=== PATIENT | female | born 1995 | race Caucasian/White ===

== ENCOUNTER 2021-04-03 11:41 | Outpatient (CLI) | payer OTHER, SELFPAY ==
[2021-04-03 11:51] LABS: Amphetamine Urine VISTA NEGATIVE (<1000 ng/mL); Barbiturate Urine VISTA NEGATIVE (< 200 ng/mL); Benzodiazepine Urine VISTA NEGATIVE (< 200 ng/mL); Cocaine Urine VISTA NEGATIVE (< 300 ng/mL); Ecstacy Urine VISTA NEGATIVE (< 500 ng/mL); Methadone Urine VISTA NEGATIVE (< 300 ng/mL); PCP Urine VISTA NEGATIVE (< 25 ng/mL); THC Urine VISTA NEGATIVE (< 50 ng/mL); Vista UDS pH Range 6
[2021-04-03 12:11] LABS: Absolute Lymphocyte Count 2.15 X10^3/uL (0.83-4.51); Absolute Neutrophil Count 8.8 X10^3/uL (2.0-7.7); Basophil# 0.06 X10^3/uL; Basophil% 0.5 % (0-1); Eosinophil# 0.08 X10^3/uL; Eosinophils% 0.7 % (0-5); Hematocrit 35.8 % (37-47); Hemoglobin 11.8 g/dL (12.0-15.0); Lymphocyte # 2.15 X10^3/ul (0.83-4.51); Lymphocyte % 17.7 % (19-41); Mean Corpuscular Hgb 28.3 pg (27.0-32.0); Mean Corpuscular Volume 85.9 fL (81-99); Mean Platelet Vol. 11.2 fl (6.2-12.0); Monocyte# 0.93 X10^3/uL; Monocyte% 7.6 % (0-10); NRBC Flagged by Analyzer 0 % (0-5); Neutrophil # 8.83 X10^3/uL (2.7-7.7); Neutrophil % 72.6 % (47-70); Platelet Count 260 K/mm3 (150-450); RBC Distribution Width CV 13.6 % (11.6-14.6); RBC Distribution Width SD 42.5 fl (35.1-43.9); Red Blood Count 4.17 M/mm3 (4.2-5.4); White Blood Count 12.2 K/mm3 (4.4-11.0)
[2021-04-03 13:19] LABS: HIV - WCH Non-Reactive (Nonreactive); Hepatitis B Surface Antigen Non-Reactive (Nonreactive); Hepatitis C Antibody Non-Reactive (Nonreactive); Rubella IgG Reactive (Nonreactive); Syphilis Antibodies Non-reactive
[2021-04-06 13:24] LABS: Chlamydia By Nucleic Acid AMP Indeterminate (Negative); Gonococcus By Nucleic Acid AMP Indeterminate (Negative)
[2021-04-08 14:21] LABS: HPV Reflexed? NOT INDICATED
== END 2021-04-03 23:59 | disposition home or self-care (01) ==
PROVIDERS: Referring Provider Obstetrics & Gynecology; Visit Provider Obstetrics & Gynecology
DX: Z34.80 Encounter for supervision of other normal pregnancy, unspecified trimester (principal)
CPT/HCPCS: 36415; 80307; 85025; 86703; 86762; 86780; 86803; 86850; 86900; 86901; 87086; 87088; 87340; 87491; 87591; 88175; G0145

== ENCOUNTER 2021-05-01 13:23 | Outpatient (CLI) | payer OTHER, SELFPAY ==
[2021-05-01 15:24] LABS: Chlamydia Trachomatis by PCR Negative (Negative); Neisserai gonorrhoeae by PCR Negative (Negative); Probe Check PASS; Sample Adequacy Control PASS; Specimen Processing Control PASS
== END 2021-05-01 23:59 | disposition home or self-care (01) ==
LOC: LABSPEC 13:24
PROVIDERS: Visit Provider Obstetrics & Gynecology
DX: Z34.90 Encounter for supervision of normal pregnancy, unspecified, unspecified trimester (principal)
CPT/HCPCS: 87491; 87591

== ENCOUNTER → 2021-08-01 | Outpatient (CLI) | payer OTHER, SELFPAY ==
[2021-08-01 13:39] LABS: Absolute Lymphocyte Count 1.72 X10^3/uL (0.83-4.51); Absolute Neutrophil Count 9.3 X10^3/uL (2.0-7.7); Basophil# 0.02 X10^3/uL; Basophil% 0.2 % (0-1); Eosinophil# 0.12 X10^3/uL; Hematocrit 35.5 % (37-47); Hemoglobin 11.9 g/dL (12.0-15.0); Lymphocyte # 1.72 X10^3/ul (0.83-4.51); Lymphocyte % 14.1 % (19-41); Mean Corp Hgb Conc 33.5 g/dL (32-36); Mean Corpuscular Hgb 30.1 pg (27.0-32.0); Mean Corpuscular Volume 89.6 fL (81-99); Mean Platelet Vol. 11.1 fl (6.2-12.0); Monocyte# 0.96 X10^3/uL; Monocyte% 7.9 % (0-10); NRBC Flagged by Analyzer 0 % (0-5); Neutrophil % 76.2 % (47-70); Platelet Count 241 K/mm3 (150-450); RBC Distribution Width CV 13.1 % (11.6-14.6); Red Blood Count 3.96 M/mm3 (4.2-5.4); White Blood Count 12.2 K/mm3 (4.4-11.0)
[2021-08-01 14:11] LABS: Glucose Challenge Gest 1H 50g 92 mg/dL (70-140)
== END | disposition home or self-care (01) ==
PROVIDERS: Referring Provider Obstetrics & Gynecology; Visit Provider Obstetrics & Gynecology
DX: Z34.90 Encounter for supervision of normal pregnancy, unspecified, unspecified trimester (principal)
CPT/HCPCS: 36415; 82950; 85025

== ENCOUNTER → 2021-08-29 | Outpatient (CLI) | payer MEDICAID, SELFPAY ==
[2021-08-29 19:54] LABS: Chlamydia Trachomatis by PCR Negative (Negative); Neisserai gonorrhoeae by PCR Negative (Negative); Probe Check PASS; Sample Adequacy Control PASS; Specimen Processing Control PASS
[2021-09-02 10:08] LABS: QNTFERON TB Mitogen Value > 10.00 IU/mL (.); QNTFERON TB Nil Value 0.01 IU/mL (.); QNTFERON TB1+ Ag Value 0.01 IU/mL (.); QNTFERON TB2+ Ag Value 0.01 IU/mL (.)
[2021-09-02 13:30] LABS: QNTIFERON TB Positive Criteria Negative (Negative)
== END | disposition home or self-care (01) ==
PROVIDERS: Referring Provider Obstetrics & Gynecology; Visit Provider Obstetrics & Gynecology
DX: Z11.3 Encounter for screening for infections with a predominantly sexual mode of transmission (principal)
CPT/HCPCS: 36415; 86480; 87491; 87591

== ENCOUNTER → 2021-10-15 | Outpatient (CLI) | payer MEDICAID, SELFPAY | END | disposition home or self-care (01) | LOC: LABSPEC 15:41 | PROVIDERS: Visit Provider Obstetrics & Gynecology | DX: Z34.90 Encounter for supervision of normal pregnancy, unspecified, unspecified trimester (principal) | CPT/HCPCS: 87081 ==

== ENCOUNTER 2021-10-24 10:34 | Inpatient (IN) | payer SELFPAY ==
[2021-10-24] VITALS (17 sets, daily range): BP systolic 110–134; BP diastolic 62–78; PULSE 55–74; RESP 18; TEMP 36.2–36.6; O2SAT 99; BMI 27.7
[2021-10-24 10:32] LABS: ROM Internal Control Test YES-OK TO RESULT pt. (Internal QC)
[2021-10-24 10:33] LABS: ROM Patient Test POSITIVE (Negative)
[2021-10-24] MEDS: Lactated Ringers 1,000 ML 50 ML IV (11:15)
[2021-10-24 11:26] LABS: Absolute Lymphocyte Count 1.45 X10^3/uL (0.83-4.51); Absolute Neutrophil Count 6.7 X10^3/uL (2.0-7.7); Basophil# 0.02 X10^3/uL; Basophil% 0.2 % (0-1); Eosinophil# 0.05 X10^3/uL; Eosinophils% 0.6 % (0-5); Hematocrit 37.9 % (37-47); Hemoglobin 13.1 g/dL (12.0-15.0); Lymphocyte # 1.45 X10^3/ul (0.83-4.51); Lymphocyte % 16.1 % (19-41); Mean Corp Hgb Conc 34.6 g/dL (32-36); Mean Corpuscular Hgb 29.8 pg (27.0-32.0); Mean Corpuscular Volume 86.1 fL (81-99); Mean Platelet Vol. 12.1 fl (6.2-12.0); Monocyte# 0.75 X10^3/uL; Monocyte% 8.3 % (0-10); NRBC Flagged by Analyzer 0 % (0-5); Neutrophil # 6.65 X10^3/uL (2.7-7.7); Platelet Count 183 K/mm3 (150-450); RBC Distribution Width CV 12.8 % (11.6-14.6); RBC Distribution Width SD 39.6 fl (35.1-43.9)
[2021-10-24] MEDS: Oxytocin 30 units/NS 500 ml 30 UNITS/500 ML IV.SOLN 334 UNITS IV (14:47)
--- NOTE | 2021-10-24 22:01 | HP.PCM.OB_ITS ---
HPI - General General Date of Admission: 10/24/21 HPI Narrative ROGER OMALLEY, is a 25 F who presents IAL with SROM clear fluid regular ctx no vb admits good fm Maternal Data Information SAM Calculator Estimated Delivery Date Method Current WG Current Estimate 11/09/21 LMP (Certain) 37w 5d PFSH PFSH Home Medications prenat.vits,raúl,iay-lqop-uybea 1 tab PO DAILY 03/18/21 [History Last Taken 10/23/21 08:00] Allergy/AdvReac Type Severity Reaction Status Date / Time No Known Allergies Allergy Verified 10/24/21 10:20 Family History Mother Breast cancer, Onset Age: 52 2019 Surgical History S/P lateral meniscus repair of right knee S/P wisdom tooth extraction Social History adopted: No household members: spouse and other details: stepdaughter current occupational status: employed 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 labor support person: kath labor intervention preferences: pain management options preferred: minimal intervention, open to epidural cut cord/dad catch: yes : [] PP control planned: [] discussed possible routes of delivery and associated risks: [] special requests: [] Plans Covid status: counseled regarding risk of covid in vs vaccination and declined vaccination Flu vaccine: declined Tdap vaccine: given Rhogam: na LARC form sigd: declined movement and labor precautions reviewed. Problem list reviewed and updated with the most current plan of care details and appropriate orders placed. Relevant counseling for the gestational age provided. Continue routine care and follow up unless otherwise noted in visit notes/problem list details OB Flowsheet Initial Weight: 155 lb Date -?-?-?-?-?-?-?-?-?-?-?-?- EGA Weight BP Urine Prot -?-?-?-?-?-?-?-?-?-?-?-?- Glucose FHR FuHt Pres Dilation -?-?-?-?-?-?-?-?-?-?-?-?- Effaced St Visit Note 04/03/21 -?-?-?-?-?-?-?-?-?-?-?-?- 8w 4d 155 lb 4 oz (+4 oz) 130/70 -?-?-?-?-?-?-?-?-?-?-?-?- 170 -?-?-?-?-?-?-?-?-?-?-?-?- JV- no vaginal b leeding or cramping CRL consistent with LMP. 05/01/21 -?-?-?-?-?-?-?-?-?-?-?-?- 12w 4d 152 lb 6 oz (-2 lb 10 oz) 118/68 Negative -?-?-?-?-?-?-?-?-?-?-?-?- Negative 155 -?-?-?-?-?-?-?-?-?-?-?-?- SM- no vb crampi ng 06/05/21 -?-?-?-?-?-?-?-?-?-?-?-?- 17w 4d 153 lb 2 oz (-1 lb 14 oz) 112/80 Negative -?-?-?-?-?-?-?-?-?-?-?-?- Negative 147 -?-?-?-?-?-?-?-?-?-?-?-?- JV- no lof, vagi nal bleeding, or dec fm. needs anatomy scan ordered 07/03/21 -?-?-?-?-?-?-?-?-?-?-?-?- 21w 4d 157 lb 6 oz (+2 lb 6 oz) 120/60 Negative -?-?-?-?-?-?-?-?-?-?-?-?- Negative 144 -?-?-?-?--?-?-?-?-?-?-?-?- JV- normal anato my. pt has atopic dermatitis 08/01/21 -?-?-?-?-?-?-?-?-?-?-?-?- 25w 5d 164 lb 2 oz (+9 lb 2 oz) 128/64 Negative -?-?-?-?-?-?-?-?-?-?-?-?- Negative 140 26 -?-?-?-?-?-?-?-?-?-?-?-?- SM- no vb lof go od fm no regualr ctx 08/29/21 -?-?-?-?-?-?-?-?-?-?--?-?- 29w 5d 168 lb 4 oz (+13 lb 4 oz) 110/60 Trace -?-?-?-?-?-?-?-?-?-?-?-?- Negative 140 30 -?-?-?-?-?-?-?-?-?-?-?-?- SM- no vb lof go od fm no regualr ctx 09/10/21 -?-?-?-?-?-?-?-?-?-?-?-?- 31w 3d 168 lb (+13 lb) 118/66 Negative -?-?-?-?-?-?-?-?-?-?-?-?- Negative 145 31 -?-?-?-?-?-?-?-?-?-?-?-?- JV- no lof, vagi nal bleeding, or dec fm. no complaints today. PTL precautions discussed. 09/23/21 -?-?-?-?-?-?-?-?-?-?-?-?- 33w 2d 171 lb (+16 lb) 122/60 Negative -?-?-?-?-?-?-?-?-?-?-?-?- Negative 140 32 -?-?-?-?-?-?-?-?-?-?-?--?- SM- discussed la bor techniques, no vb lof good fm no regular ctx 10/06/21 -?-?-?-?-?-?-?-?-?-?-?-?- 35w 1d 172 lb (+17 lb) 110/66 Negative -?-?-?-?-?-?-?-?-?-?-?-?- Negative 130 34 -?-?-?-?-?-?-?-?-?-?-?-?- SM- no vb lof go od fm no regular ctx 10/15/21 -?-?-?-?-?-?--?-?-?-?-?-?- 36w 3d 173 lb 6 oz (+18 lb 6 oz) 102/62 Negative -?-?-?-?-?-?-?-?-?-?-?-?- Negative 134 36 Cephalic 3 .5 -?-?--?-?-?-?-?-?-?-?-?-?- 70 -2 JV- gbs co llected. labor precautions discussed. 10/22/21 -?-?-?-?-?-?-?-?-?-?-?-?- 37w 3d 172 lb 8 oz (+17 lb 8 oz) 126/69 Trace -?-?-?-?-?-?-?-?-?-?-?-?- Negative 129 37 Cephalic 4 -?-?-?-?-?-?-?-?-?-?-?-?- 80 -2 JV- labor precautions discussed, no lof, vaginal bleeding, or dec fm. GBs neg 10/24/21 -?-?-?-?-?-?-?-?-?-?-?-?- 37w 5d 171 lb 15.369 oz (+16 lb 15.369 oz) 115/73 134/72 121/62 119/71 114/62 110/67 124/71 114/73 113/73 118/78 117/73 118/76 125/78 122/76 -?-?-?-?-?-?-?-?-?-?-?-?- -?-?-?-?-?-?-?-?-?-?-?-?- NST FHR Rate Baby A Baseline: 140 Variability:: Moderate Accelerations:: 15 x 15 Decelerations:: None NST Reactive:: Yes FHR Category:: Category I Uterine Activity:: q3-5 ROS Constitutional Constitutional: Reports systems reviewed and no addt'l complaints, except as documented ENT HEENT: Reports systems reviewed and no addt'l complaints, except as documented Cardiovascular Cardiovascular: Reports systems reviewed and no addt'l complaints, except as documented Respiratory/Chest Respiratory/Chest: Reports systems reviewed and no addt'l complaints, except as documented Gastrointestinal Gastrointestinal: Reports systems reviewed and no addt'l complaints, except as documented and nausea; Denies abdominal pain Genitourinary Genitourinary: Reports systems reviewed and no addt'l complaints, except as documented, contractions Details: present and frequency (regular ) and movement Details: present Musculoskeletal Musculoskeletal: Reports systems reviewed and no addt'l complaints, except as documented Integumentary Integumentary: Reports as per HPI Neurologic Neurologic: Reports systems reviewed and no addt'l complaints, except as documented Endocrine Endocrinology: Reports systems reviewed and no addt'l complaints, except as documented Vital Signs Vital Signs Vital Signs: 10/24/21 10:03 10/24/21 10:03 10/24/21 10:03 Temperature Temperature Source Pulse Rate 74 Respiratory Rate Blood Pressure 115/73 Blood Pressure [BP] Blood Pressure Mean [BP] BP Systolic 115 BP Diastolic 73 Blood Pressure Source [BP] Blood Pressure Position [BP] Blood Pressure Location [BP] Pulse Ox 99 Oxygen Delivery Method 10/24/21 10:03 10/24/21 10:02 10/24/21 10:02 Temperature 97.1 F L Temperature Source Temporal Pulse Rate 68 Respiratory Rate Blood Pressure Blood Pressure [BP] Blood Pressure Mean [BP] BP Systolic BP Diastolic Blood Pressure Source [BP] Blood Pressure Position [BP] Blood Pressure Location [BP] Pulse Ox Oxygen Delivery Method 10/24/21 12:21 10/24/21 12:21 10/24/21 12:20 Temperature Temperature Source Temporal Pulse Rate 66 Respiratory Rate Blood Pressure 134/72 H Blood Pressure [BP] Blood Pressure Mean [BP] BP Systolic 134 BP Diastolic 72 Blood Pressure Source [BP] Blood Pressure Position [BP] Blood Pressure Location [BP] Pulse Ox Oxygen Delivery Method 10/24/21 12:20 10/24/21 12:20 10/24/21 14:06 Temperature 97.3 F L Temperature Source Pulse Rate Respiratory Rate Blood Pressure 121/62 H Blood Pressure [BP] Blood Pressure Mean [BP] BP Systolic 121 BP Diastolic 62 Blood Pressure Source [BP] Blood Pressure Position [BP] Blood Pressure Location [BP] Pulse Ox 99 Oxygen Delivery Method 10/24/21 14:06 10/24/21 15:01 10/24/21 15:01 Temperature Temperature Source Pulse Rate 60 63 Respiratory Rate Blood Pressure 119/71 Blood Pressure [BP] Blood Pressure Mean [BP] BP Systolic 119 BP Diastolic 71 Blood Pressure Source [BP] Blood Pressure Position [BP] Blood Pressure Location [BP] Pulse Ox Oxygen Delivery Method 10/24/21 15:16 10/24/21 15:16 10/24/21 15:31 Temperature Temperature Source Pulse Rate 63 Respiratory Rate Blood Pressure 114/62 110/67 Blood Pressure [BP] Blood Pressure Mean [BP] BP Systolic 114 110 BP Diastolic 62 67 Blood Pressure Source [BP] Blood Pressure Position [BP] Blood Pressure Location [BP] Pulse Ox Oxygen Delivery Method 10/24/21 15:31 10/24/21 15:46 10/24/21 15:46 Temperature Temperature Source Pulse Rate 69 63 Respiratory Rate Blood Pressure 124/71 H Blood Pressure [BP] Blood Pressure Mean [BP] BP Systolic 124 BP Diastolic 71 Blood Pressure Source [BP] Blood Pressure Position [BP] Blood Pressure Location [BP] Pulse Ox Oxygen Delivery Method 10/24/21 16:02 10/24/21 16:02 10/24/21 16:16 Temperature Temperature Source Pulse Rate 57 L Respiratory Rate Blood Pressure 114/73 113/73 Blood Pressure [BP] Blood Pressure Mean [BP] BP Systolic 114 113 BP Diastolic 73 73 Blood Pressure Source [BP] Blood Pressure Position [BP] Blood Pressure Location [BP] Pulse Ox Oxygen Delivery Method 10/24/21 16:16 10/24/21 16:31 10/24/21 16:31 Temperature Temperature Source Pulse Rate 56 L 55 L Respiratory Rate Blood Pressure 118/78 Blood Pressure [BP] Blood Pressure Mean [BP] BP Systolic 118 BP Diastolic 78 Blood Pressure Source [BP] Blood Pressure Position [BP] Blood Pressure Location [BP] Pulse Ox Oxygen Delivery Method 10/24/21 16:46 10/24/21 16:46 10/24/21 17:01 Temperature Temperature Source Pulse Rate 61 Respiratory Rate Blood Pressure 117/73 118/76 Blood Pressure [BP] Blood Pressure Mean [BP] BP Systolic 117 118 BP Diastolic 73 76 Blood Pressure Source [BP] Blood Pressure Position [BP] Blood Pressure Location [BP] Pulse Ox Oxygen Delivery Method 10/24/21 17:01 10/24/21 17:13 10/24/21 17:13 Temperature Temperature Source Pulse Rate 60 58 L Respiratory Rate Blood Pressure 125/78 H Blood Pressure [BP] Blood Pressure Mean [BP] BP Systolic 125 BP Diastolic 78 Blood Pressure Source [BP] Blood Pressure Position [BP] Blood Pressure Location [BP] Pulse Ox Oxygen Delivery Method 10/24/21 20:01 10/24/21 20:01 10/24/21 20:01 Temperature 97.9 F Temperature Source Temporal Pulse Rate 73 73 Respiratory Rate 18 Blood Pressure 122/76 H Blood Pressure [BP] 122/76 H Blood Pressure Mean [BP] 91 BP Systolic 122 BP Diastolic 76 Blood Pressure Source [BP] Monitor Blood Pressure Position [BP] Semi-Fowlers Blood Pressure Location [BP] Left Arm Pulse Ox Oxygen Delivery Method Room Air Weight Weight: 171 lb 15.369 oz Body Mass Index (BMI) 27.7 Physical Exam Const alert, oriented x3 and healthy appearing Constitutional Narrative: uncomfortable with contractions HEENT normocephalic and moist oral mucous membranes Head and Scalp: atraumatic Neck full ROM, no lymphadenopathy, supple and thyroid normal General: trachea midline Thyroid: thyroid normal Lymph Lymphatic: no lymphadenopathy noted Chest inspection of chest normal Resp normal respiratory effort Cardio regular rate GI normal to inspection, nondistended, normoactive bowel sounds, soft to palpation and non-tender Inspection: gravid external exam normal Bimanual Exam - Vag & Uterus: uterus non-tender Manual OB Exam: estimated gestational size appropriate, presentation cephalic, dilated, effaced and station Extremity normal to inspection General Extremity: Negative for edema Skin no rashes or lesions noted Neuro deep tendon reflexes 2+ bilaterally Motor Exam: strength 5/5 throughout and clonus absent Psych mental status grossly normal Labs Labs Labs: Blood Type A POSITIVE Antibody Screen NEGATIVE Hct 37.9 % (37-47) Hgb 13.1 g/dL (12.0-15.0) Syphilis Total Ab Non-reactive Rubella IgG Antibody Reactive (Nonreactive) Hep Bs Antigen Non-Reactive (Nonreactive) Chlamydia DNA (MARKO) Indeterminate (Negative) Neisseria gonorrhoeae DNA (MARKO) Indeterminate (Negati ve) HIV 1&2 Antibody Non-Reactive (Nonreactive) Glucose 1 Hr 50 gm 92 mg/dL (70-140) Assessment & Plan (1) Supervision of normal : COMMENT: PRR SAM 11/09/21 surprise spouse Kath Albright) (2) Family history of cystic fibrosis: COMMENT: 2 paternal cousins but feels due to their maternal side (3) : QUALIFIERS: Weeks of gestation: 37 weeks Qualified Code(s): Z3A.37 - 37 weeks gestation of COMMENT: declined ntd genetic and carrier screen nl anatomy US (4) SROM (spontaneous rupture of membranes): COMMENT: active labor
--- NOTE | 2021-10-24 22:03 | OP.PCM_ITS ---
Assessment & Plan (1) SROM (spontaneous rupture of membranes): COMMENT: active labor (2) Supervision of normal : COMMENT: PRR SAM 11/09/21 surprise spouse Atilio Albrgiht) (3) Family history of cystic fibrosis: COMMENT: 2 paternal cousins but feels due to their maternal side (4) : QUALIFIERS: Weeks of gestation: 37 weeks Qualified Code(s): Z3A.37 - 37 weeks gestation of COMMENT: declined ntd genetic and carrier screen nl anatomy US Maternal Data Information SAM Calculator Estimated Delivery Date Method Current WG Current Estimate 11/09/21 LMP (Certain) 37w 5d Vaginal Delivery Operative Information Date of Procedure: 10/24/21 Pre-Operative Diagnosis: IAL Post-Operative Diagnosis: same Surgery / Procedure Performed: Spontaneous Vaginal Delivery Type of Anesthesia: Local with 1% Lidocaine Special Medications: none Estimated Blood Loss: 200 Fluids Replaced: crystalloid Findings Description of Procedure: Patient began pushing and delivered the head in the KEZIA presentation. The head was delivered atraumatically and a loose nuchal cord ?1 was identified and the delivered through without complication. The anterior and posterior shoulders delivered without complication followed by the rest of the and the infant was placed on the maternal abdomen. Delayed cord clamping was employed for approximately 60 seconds. Cord was clamped and cut and gentle traction was applied to the cord and the placenta delivered spontaneously immediately following it was noted to be intact with three-vessel cord. The perineum and vagina were inspected and noted to have a left vaginal first degree laceration repaired in jeana usual fashion with 3-0 rapide. EBL was 200. Patient and tolerated delivery well. Presentation: KEZIA Amniotic Membrane Rupture Type: Spontaneous Amniotic Fluid Description: Clear Placental Delivery Description: Spontaneous Placenta Disposition: [facility] Cord Vessel Description: 3 Vessels Cord Entanglement: Around neck x 1, loose A Gender: Male Delayed Cord Clamping: Yes Post Vaginal Delivery Medications Given After Delivery: IV Pitocin Episiotomy Description: None Laceration: Vaginal Extension/lac and 1st degree Complication Complications: None Procedures Urinary/Genital [id number]: [id number] Vaginal Delivery [facility]
--- NOTE | 2021-10-24 22:05 | DCINST_ITS ---
Discharge Instructions Diet Discharge Diet: No restrictions Activity Discharge Activity: Return to Normal Activity, May Drive, May Shower and May Take a Tub Bath (in 4 weeks) May resume sexual activity in: 6-8 weeks (after seen by OB provider) Weight Bearing Status: Full weight bearing Lifting Restrictions: none Dressing / Incision Call your doctor if you observe: Fever of 101 or Higher, Inability to urinate, Using more than 1 pad per hour (for more than 2 hours in a row or more), Shortness of breath, Dizziness, Chest pain and - (headache not controlled with tylenol, change in vision) Follow Up Care When: in 6 weeks for visit, call the office to make the appointment. If you had elevated blood pressures call the office to be seen within 1 week. Test Results: Test results from this visit will be discussed in further detail at your follow- up appointment, if applicable. Discharge Plan Admission Admit Date/Time: 10/24/21 10:34 Attending Provider: Cherelle White Primary Care Provider: Care Physician,Isaura Primary Discharge Orders/Prescriptions Prescriptions: No Action prenat.vits,raúl,[id number] Tablet 1 tab PO DAILY Referrals / Follow Up: Care Physician,No Primary [Primary Care Provider] - Disposition Disposition (needs filled in before D/C Order can be placed): Home, Self Care
[2021-10-25 06:00] VITALS: BP 112/65; PULSE 76; RESP 16; TEMP 36.6
[2021-10-25 08:32] VITALS: BP 98/68; PULSE 72; RESP 18; TEMP 36.4; O2SAT 97
--- NOTE | 2021-10-25 09:16 | PN.OBGYN_ITS ---
Subjective Subjective Patient doing well without complaints. Tolerating PO. Ambulating and voiding without difficulty. feeding well. Denies chest pain, shortness of breath, calf pain/swelling, fevers, chills, lightheadedness. Objective Data Objective Data Vital Signs: Vital Signs Temp Pulse Resp BP Pulse Ox O2 Del Method 97.5 F L 72 18 98/68 97 Room Air 10/25/21 08:32 10/25/21 08:32 10/25/21 08:32 10/25/21 08:32 10/25/21 08:32 10/25/21 08:32 Oxygen Delivery Method Room Air Weight: 171 lb 15.369 oz Body Mass Index (BMI) 27.7 Intake & Output: Intake and Output for Last 24 Hours 10/23/21 10/24/21 10/25/21 23:59 23:59 23:59 Intake Total 676.67 / 676.67 Output Total 1800 / 1800 Balance -1123.33 / -1123.33 Lab / Micro Data Result Diagrams: 10/24/21 11:15 Labs: Laboratory Results - last 24 hr 10/24/21 10:15: Vag Amniotic Fld Detect POSITIVE H 10/24/21 11:15: WBC 9.0, RBC 4.40, Hgb 13.1, Hct 37.9, MCV 86.1, MCH 29.8, MCHC 34.6, RDW Std Deviation 39.6, RDW Coeff of Derick 12.8, Plt Count 183, MPV 12.1 H, Immature Gran % (Auto) 0.800, Neut % (Auto) 74.0 H, Lymph % (Auto) 16.1 L, [facility] % (Auto) 8.3, Eos % (Auto) 0.6, Baso % (Auto) 0.2, Absolute Neuts (auto) 6.7, Absolute Lymphs (auto) 1.45, Nucleated RBC % 0 10/24/21 11:15: Blood Type A POSITIVE, Antibody Screen NEGATIVE ROS Constitutional Constitutional: Reports systems reviewed and no addt'l complaints, except as documented Cardiovascular Cardiovascular: Reports systems reviewed and no addt'l complaints, except as documented Respiratory/Chest Respiratory/Chest: Reports systems reviewed and no addt'l complaints, except as documented Gastrointestinal Gastrointestinal: Reports systems reviewed and no addt'l complaints, except as documented Physical Exam Const alert, oriented x3 and no apparent distress HEENT Head and Scalp: atraumatic Resp normal respiratory effort GI soft to palpation and non-tender Bimanual Exam - Vag & Uterus: uterus non-tender Uterus Palpation: uterus fundus firm (below Umbilicus) Assessment & Plan (1) Vaginal delivery: COMMENT: 37 SROM SM phil casiano
[2021-10-25 12:55] VITALS: BP 95/68; PULSE 61; RESP 16; TEMP 36.4; O2SAT 99
[2021-10-25 16:53] VITALS: BP 115/63; PULSE 60; RESP 16; TEMP 36.1; O2SAT 100
[2021-10-25 20:21] VITALS: BP 128/76; PULSE 70; RESP 16; TEMP 36.6; O2SAT 100
[2021-10-26 02:09] VITALS: BP 105/59; PULSE 64; RESP 16; TEMP 36.3; O2SAT 98
[2021-10-26 04:28] VITALS: BP 109/63; PULSE 64; RESP 16; TEMP 36.4
--- NOTE | 2021-10-26 06:25 | PCM.PN.OB ---
Subjective Subjective Patient doing well without complaints. Tolerating PO. Ambulating and voiding without difficulty. feeding well. Denies chest pain, shortness of breath, calf pain/swelling, fevers, chills, lightheadedness. Objective Data Objective Data Vital Signs: Vital Signs Temp Pulse Resp BP Pulse Ox O2 Del Method 97.5 F L 64 16 109/63 98 Room Air 10/26/21 04:28 10/26/21 04:28 10/26/21 04:28 10/26/21 04:28 10/26/21 02:10/26/21 04:28 Oxygen Delivery Method Room Air Weight: 171 lb 15.369 oz Body Mass Index (BMI) 27.7 Intake & Output: Intake and Output for Last 24 Hours 10/24/21 10/25/21 10/26/21 23:59 23:59 23:59 Intake Total 676.67 / 676.67 Output Total 1800 / 1800 Balance -1123.33 / -1123.33 Lab / Micro Data Result Diagrams: 10/24/21 11:15 ROS Constitutional Constitutional: Reports systems reviewed and no addt'l complaints, except as documented Cardiovascular Cardiovascular: Reports systems reviewed and no addt'l complaints, except as documented Respiratory/Chest Respiratory/Chest: Reports systems reviewed and no addt'l complaints, except as documented Gastrointestinal Gastrointestinal: Reports systems reviewed and no addt'l complaints, except as documented Physical Exam Const alert, oriented x3 and no apparent distress HEENT Head and Scalp: atraumatic Resp normal respiratory effort GI soft to palpation and non-tender Bimanual Exam - Vag & Uterus: uterus non-tender Uterus Palpation: uterus fundus firm (below Umbilicus) Assessment & Plan (1) Vaginal delivery: COMMENT: 37 SROM SM phil casiano
[2021-10-26 07:50] VITALS: BP 117/72; PULSE 54; RESP 16; TEMP 36.7; O2SAT 98
[2021-10-26 13:22] VITALS: BP 114/69; PULSE 60; RESP 16; O2SAT 99
== END 2021-10-26 13:45 | disposition home or self-care (01) | DRG 807 ==
LOC: WPOUT 10:34 → WP 10:34
PROVIDERS: Admitting Provider Obstetrics & Gynecology; Referring Provider Obstetrics & Gynecology; Visit Provider Obstetrics & Gynecology
DX: O70.0 First degree perineal laceration during delivery (principal); Z37.0 Single live birth; O69.81X0 Labor and delivery complicated by cord around neck, without compression, not applicable or unspecified; Z3A.37 37 weeks gestation of pregnancy; Z83.49 Family history of other endocrine, nutritional and metabolic diseases
CPT/HCPCS: 59025; 59050; 84112; 85025; 86850; 86900; 86901; 99218; J7120; G0378

== ENCOUNTER 2022-12-22 21:09 | Emergency (ER) | payer BC, SELFPAY ==
[2022-12-22 21:10] VITALS: BP 133/64; PULSE 69; RESP 16; TEMP 36.6; O2SAT 99; BMI 24.8
--- NOTE | 2022-12-22 21:18 | US_ITS ---
INDICATION: vaginal bleeding with clots EXAMINATION: Ultrasound US OB Transvaginal TECHNIQUE: Transvaginal (for optimal evaluation of the adnexa) pelvic ultrasound was performed. Grayscale, spectral waveform, and color flow Doppler evaluation of the adnexa. COMPARISON: No relevant prior comparison study available LMP: [10/29/2022 Beta-hCG: Unknown FINDINGS: UTERUS: Mobile uterus measuring 7.6 x 6.2 x 4.5 cm. This is positioned in both a retroverted and anteverted position throughout the examination. There is no intrauterine gestational sac identified. Endometrium is fairly homogenous measuring 1.4 cm. No uterine mass. The cervix is closed. RIGHT OVARY: 3.7 x 2.4 x 2.2 cm. Normal arterial and venous spectral waveforms. Corpus luteum noted. LEFT OVARY: 3 x 1.4 x 1.2 cm. Normal arterial and venous spectral waveforms. FREE FLUID: Mild to moderate volume of complex free fluid in the pelvis. US/Transvaginal w/Preg US IMPRESSION: No intrauterine identified. No evidence of ectopic . Appearance is most concerning for spontaneous . Continued follow-up recommended. Electronically Signed: Cristi Slaughter MD at 22:37 EST ,
[2022-12-22 21:37] LABS: Absolute Lymphocyte Count 3.35 X10^3/uL (0.83-4.51); Absolute Neutrophil Count 6.1 X10^3/uL (2.0-7.7); Basophil% 0.9 % (0-1); Eosinophil# 0.27 X10^3/uL; Eosinophils% 2.5 % (0-5); Hematocrit 40.3 % (37-47); Hemoglobin 13.1 g/dL (12.0-15.0); Lymphocyte # 3.35 X10^3/ul (0.83-4.51); Lymphocyte % 31.5 % (19-41); Mean Corp Hgb Conc 32.5 g/dL (32-36); Mean Corpuscular Hgb 28.4 pg (27.0-32.0); Mean Corpuscular Volume 87.4 fL (81-99); Monocyte# 0.77 X10^3/uL; Monocyte% 7.3 % (0-10); NRBC Flagged by Analyzer 0 % (0-5); Neutrophil # 6.11 X10^3/uL (2.7-7.7); Neutrophil % 57.6 % (47-70); Platelet Count 284 K/mm3 (150-450); RBC Distribution Width CV 13.6 % (11.6-14.6); RBC Distribution Width SD 43.7 fl (35.1-43.9); Red Blood Count 4.61 M/mm3 (4.2-5.4); White Blood Count 10.6 K/mm3 (4.4-11.0)
[2022-12-22 21:46] LABS: Anion Gap 4 (5-15); BUN 9 mg/dL (7-18); BUN/Creat Ratio 11.1 RATIO (10-20); Calcium,Total 9.6 mg/dL (8.5-10.1); Chloride 105 mmol/L (98-107); Creatinine, Serum 0.81 mg/dL (0.55-1.02); EST Glomerular Filtration Rate 90 mL/min (>60); Est Glom Filt Rate - Afr Amer 109 mL/min (>60); Estimated Creatinine Clearance 97.66 ml/min; Glucose 95 mg/dL (74-106); Potassium 3.9 mmol/L (3.5-5.1); Sodium Level 137 mmol/L (136-145)
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
[2022-12-22 22:04] LABS: Bacteria 0 SEEN /hpf (None Seen); Glucose, Dipstick Normal (Normal); Ketone-Dipstick Negative (Negative); Leukocyte Esterase-Dipstick 25 /ul (Negative); Mucous, Urine 0 SEEN /hpf (<or=2+); Nitrite-Dipstick Negative (Negative); Occult Blood-Urine 250 /ul (Negative); Protein-Dipstick 100 mg/dl (Negative); Specific Gravity, Urine 1.015 (1.002-1.030); Urine Bilirubin Dipstick Negative (Negative); Urine Clarity Sl. Cloudy (Clear); Urine Urobilinogen Normal (Normal); White Blood Cells 0 SEEN /hpf (0-5)
[2022-12-22 22:09] LABS: Color, Urine SEE COMMENT BELOW (Yellow)
[2022-12-22 22:10] LABS: Red Blood Cells-Urine > 100 SEEN /hpf (0-5); Squamous Epithelial Cells - UA 0-5 SEEN /hpf (5-10)
[2022-12-22 22:33] LABS: hCG Titer Quant., Serum 4180 mIU/mL (1-3)
[2022-12-22 22:59] VITALS: RESP 16
== END 2022-12-22 23:00 | disposition home or self-care (01) ==
PROVIDERS: Emergency Provider Student in an Organized Health Care Education/Training Program; PCP Family Medicine; Visit Provider Student in an Organized Health Care Education/Training Program
DX: O03.9 Complete or unspecified spontaneous abortion without complication (principal)
CPT/HCPCS: 76817; 80048; 81001; 84702; 85025; 99282; A4216

== ENCOUNTER → 2022-12-24 | Outpatient (CLI) | payer BC, SELFPAY ==
[2022-12-24 12:51] LABS: hCG Titer Quant., Serum 1336 mIU/mL (1-3)
== END | disposition home or self-care (01) ==
LOC: LAB 10:57
PROVIDERS: Obstetrics & Gynecology; PCP Family Medicine; Referring Provider Advanced Practice Midwife; Visit Provider Advanced Practice Midwife
DX: O03.9 Complete or unspecified spontaneous abortion without complication (principal)
CPT/HCPCS: 36415; 84702

== ENCOUNTER → 2023-01-08 | Outpatient (CLI) | payer BC, SELFPAY ==
[2023-01-08 14:17] LABS: hCG Titer Quant., Serum 6 mIU/mL (1-3)
== END | disposition home or self-care (01) ==
LOC: LAB 12:27
PROVIDERS: Obstetrics & Gynecology; PCP Family Medicine; Referring Provider Advanced Practice Midwife; Visit Provider Advanced Practice Midwife
DX: O03.9 Complete or unspecified spontaneous abortion without complication (principal)
CPT/HCPCS: 36415; 84702

== ENCOUNTER → 2023-03-18 | Outpatient (CLI) | payer BC, SELFPAY ==
[2023-03-22 22:07] LABS: Chlamydia By Nucleic Acid AMP Negative (Negative); Gonococcus By Nucleic Acid AMP Negative (Negative)
== END | disposition home or self-care (01) ==
LOC: LABSPEC 13:07
PROVIDERS: PCP Family Medicine; Referring Provider Obstetrics & Gynecology; Visit Provider Obstetrics & Gynecology
DX: O03.9 Complete or unspecified spontaneous abortion without complication (principal)
CPT/HCPCS: 87086; 87088; 87491; 87591

== ENCOUNTER → 2023-04-19 | Outpatient (CLI) | payer BC, SELFPAY ==
[2023-04-19 16:21] LABS: Absolute Lymphocyte Count 1.43 X10^3/uL (0.83-4.51); Absolute Neutrophil Count 7.7 X10^3/uL (2.0-7.7); Basophil# 0.02 X10^3/uL; Basophil% 0.2 % (0-1); Eosinophil# 0.07 X10^3/uL; Eosinophils% 0.7 % (0-5); Hematocrit 38.1 % (37-47); Hemoglobin 12.7 g/dL (12.0-15.0); Lymphocyte # 1.43 X10^3/ul (0.83-4.51); Lymphocyte % 14.5 % (19-41); Mean Corp Hgb Conc 33.3 g/dL (32-36); Mean Corpuscular Hgb 28.5 pg (27.0-32.0); Mean Corpuscular Volume 85.4 fL (81-99); Mean Platelet Vol. 10.9 fl (6.2-12.0); Monocyte# 0.59 X10^3/uL; NRBC Flagged by Analyzer 0 % (0-5); Neutrophil # 7.66 X10^3/uL (2.7-7.7); Platelet Count 323 K/mm3 (150-450); RBC Distribution Width CV 13.1 % (11.6-14.6); RBC Distribution Width SD 40.5 fl (35.1-43.9); Red Blood Count 4.46 M/mm3 (4.2-5.4); White Blood Count 9.8 K/mm3 (4.4-11.0)
[2023-04-19 17:45] LABS: HIV - WCH Non-Reactive (Nonreactive); Hepatitis B Surface Antigen Non-Reactive (Nonreactive); Hepatitis C Antibody Non-Reactive (Nonreactive); Rubella IgG Reactive (Nonreactive); Syphilis Antibodies Non-reactive
== END | disposition home or self-care (01) ==
LOC: LAB 15:27
PROVIDERS: PCP Family Medicine; Referring Provider Obstetrics & Gynecology; Visit Provider Obstetrics & Gynecology
DX: O03.9 Complete or unspecified spontaneous abortion without complication (principal)
CPT/HCPCS: 36415; 85025; 86703; 86762; 86780; 86803; 86850; 86900; 86901; 87340

== ENCOUNTER → 2023-08-05 | Outpatient (CLI) | payer BC, SELFPAY ==
[2023-08-05 13:22] LABS: Absolute Lymphocyte Count 1.74 X10^3/uL (0.83-4.51); Basophil# 0.04 X10^3/uL; Basophil% 0.4 % (0-1); Eosinophils% 0.9 % (0-5); Hematocrit 33.5 % (37-47); Hemoglobin 10.9 g/dL (12.0-15.0); Lymphocyte # 1.74 X10^3/ul (0.83-4.51); Lymphocyte % 16.3 % (19-41); Mean Corp Hgb Conc 32.5 g/dL (32-36); Mean Corpuscular Hgb 28.5 pg (27.0-32.0); Mean Corpuscular Volume 87.5 fL (81-99); Mean Platelet Vol. 10.6 fl (6.2-12.0); Monocyte# 0.75 X10^3/uL; NRBC Flagged by Analyzer 0 % (0-5); Neutrophil # 8.01 X10^3/uL (2.7-7.7); Platelet Count 241 K/mm3 (150-450); RBC Distribution Width CV 13.1 % (11.6-14.6); RBC Distribution Width SD 41.1 fl (35.1-43.9); Red Blood Count 3.83 M/mm3 (4.2-5.4); White Blood Count 10.7 K/mm3 (4.4-11.0)
[2023-08-05 13:33] LABS: Glucose Challenge Gest 1H 50g 90 mg/dL (70-140)
[2023-08-05 14:08] LABS: HIV - WCH Non-Reactive (Nonreactive); Syphilis Antibodies Non-reactive
== END | disposition home or self-care (01) ==
LOC: PAVLAB 13:00
PROVIDERS: PCP Family Medicine; Visit Provider Obstetrics & Gynecology
DX: O09.92 Supervision of high risk pregnancy, unspecified, second trimester (principal); Z13.1 Encounter for screening for diabetes mellitus; Z3A.00 Weeks of gestation of pregnancy not specified
CPT/HCPCS: 36415; 82950; 85025; 86703; 86780

== ENCOUNTER 2023-09-30 23:45 | Outpatient (CLI) | payer BC, SELFPAY ==
[2023-10-01 00:04] VITALS: PULSE 88; O2SAT 99
[2023-10-01 00:10] VITALS: BP 116/67; PULSE 80
[2023-10-01 00:16] VITALS: BMI 28.2
[2023-10-01] MEDS: Ampicillin 2 GM in 0.9% Normal Saline (100mL MB+) 100 ML IV (03:18)
[2023-10-01] MEDS: Betamethasone/Betamethasone 30 MG/5 ML Vial 12 MG IM (03:19)
[2023-10-01] MEDS: Lactated Ringers 1,000 ML 50 ML IV (03:21)
[2023-10-01 03:31] LABS: Absolute Lymphocyte Count 2.28 X10^3/uL (0.83-4.51); Absolute Neutrophil Count 7.6 X10^3/uL (2.0-7.7); Basophil# 0.03 X10^3/uL; Basophil% 0.3 % (0-1); Eosinophils% 0.9 % (0-5); Hematocrit 34.1 % (37-47); Hemoglobin 11.3 g/dL (12.0-15.0); Lymphocyte # 2.28 X10^3/ul (0.83-4.51); Mean Corp Hgb Conc 33.1 g/dL (32-36); Mean Corpuscular Hgb 28.8 pg (27.0-32.0); Mean Platelet Vol. 10.9 fl (6.2-12.0); Monocyte% 7.4 % (0-10); NRBC Flagged by Analyzer 0 % (0-5); Neutrophil # 7.57 X10^3/uL (2.7-7.7); Neutrophil % 69.8 % (47-70); Platelet Count 203 K/mm3 (150-450); RBC Distribution Width CV 13.2 % (11.6-14.6); RBC Distribution Width SD 41.8 fl (35.1-43.9); Red Blood Count 3.92 M/mm3 (4.2-5.4); White Blood Count 10.8 K/mm3 (4.4-11.0)
[2023-10-01 03:55] VITALS: BP 116/62; PULSE 64
[2023-10-01 04:00] VITALS: RESP 16
[2023-10-01 04:05] LABS: Syphilis Antibodies Non-reactive
[2023-10-01 05:13] LABS: Group B Strep DNA By PCR Negative (Negative); Internal Control PASS; Probe Check PASS; Specimen Processing Control PASS
[2023-10-01 06:26] VITALS: BP 112/66; PULSE 64
[2023-10-01 07:16] VITALS: BP 116/62; PULSE 69; RESP 16; TEMP 36.6; O2SAT 98
--- NOTE | 2023-10-01 08:35 | PCM.PN.OB ---
Subjective Subjective patient has been in observation status over night. She is still feeling contractions. she is status post one dose of amp for gbs unknown and one dose of celestond due to being 36 weeks and contractions. She was 5 cm dilated and 70% effaced 2 hours ago. Objective Data Objective Data Vital Signs: Vital Signs Temp Pulse Resp BP Pulse Ox 97.8 F 69 16 116/62 98 10/01/23 07:16 10/01/23 07:16 10/01/23 07:16 10/01/23 07:16 10/01/23 07:16 Weight: 175 lb Body Mass Index (BMI) 28.2 Intake & Output: Intake and Output for Last 24 Hours 09/29/23 09/30/23 10/01/23 23:59 23:59 23:59 Intake Total 1100.0 / 1100.0 Balance 1100.0 / 1100.0 Lab / Micro Data 10/01/23 03:10 Labs: Laboratory Results - last 24 hr 10/01/23 03:10: WBC 10.8, RBC 3.92 L, Hgb 11.3 L, Hct 34.1 L, MCV 87.0, MCH 28.8, MCHC 33.1, RDW Std Deviation 41.8, RDW Coeff of Derick 13.2, Plt Count 203, MPV 10.9, Immature Gran % (Auto) 0.600, Neut % (Auto) 69.8, Lymph % (Auto) 21.0, [place] % (Auto) 7.4, Eos % (Auto) 0.9, Baso % (Auto) 0.3, Absolute Neuts (auto) 7.6, Absolute Lymphs (auto) 2.28, Nucleated RBC % 0, Syphilis Total Ab Non-reactive, Blood Type A POSITIVE, Antibody Screen NEGATIVE 10/01/23 03:55: Group B Strep DNA Negative, Specimen Comment Not Reportable ROS Constitutional Constitutional: Reports systems reviewed and no addt'l complaints, except as documented Gastrointestinal Gastrointestinal: Denies bloating, constipation, cramping, diarrhea, nausea or vomiting Genitourinary Genitourinary: Reports other Details: Denies vaginal odor, vaginal bleeding, or vaginal discharge ; Denies difficulty urinating or flank pain Physical Exam HEENT normocephalic Resp normal respiratory effort and normal air movement no CVA tenderness Extremity normal to inspection General Extremity: edema bilateral (trace ) NST FHR Rate Baby A Baseline: 140 Variability:: Moderate Accelerations:: 15 x 15 Decelerations:: None NST Reactive:: Yes FHR Category:: Category I Assessment & Plan (1) Threatened labor: (2) Supervision of high-risk : QUALIFIERS: Trimester: second trimester Qualified Code(s): O09.92 - Supervision of high risk , unspecified, second trimester COMMENT: [id number], SAM 10/27/23, PC Jack, Atilio (3) : QUALIFIERS: Weeks of gestation: 35 weeks Qualified Code(s): Z3A.35 - 35 weeks gestation of COMMENT: anatomy nl, declined ntd genetic & carrier and AFP testing (4) Anemia: COMMENT: add Fe and repeat CBC/iron studies in 4 wks (5) Family history of cystic fibrosis: COMMENT: 2 paternal cousins but feels due to their maternal side PLAN: Plan pt is still 5 cm and lisette irregularly but is now 90% effaced gbs is negative- stop amp plan is to walk the halls, eat breakfast, and re-check cervix in 2 more hours. Charges/Coding Multi Select Codes Visit Charges Office Visit/Consults: 43545 OV L3 Est 20min Urinary/Genital Urinary/Genital CPT Codes: 82198-42 non-stress test Interp
== END 2023-10-01 10:50 | disposition home or self-care (01) ==
LOC: WPOUT 23:50 → WP 23:51
PROVIDERS: PCP Family Medicine; Referring Provider Obstetrics & Gynecology; Visit Provider Obstetrics & Gynecology
DX: O47.03 False labor before 37 completed weeks of gestation, third trimester (principal); Z3A.36 36 weeks gestation of pregnancy; O09.93 Supervision of high risk pregnancy, unspecified, third trimester
CPT/HCPCS: 96365; 96375; 96361; 36415; 59025; 59050; 85025; 86780; 86850; 86900; 86901; 87081; 87653; 96372; 99221; J7120; G0378; J0702

== ENCOUNTER 2023-10-16 18:42 | Inpatient (IN) | payer BC, SELFPAY ==
[2023-10-16] VITALS (26 sets, daily range): BP systolic 99–124; BP diastolic 54–72; PULSE 69–84; RESP 16–18; TEMP 36.2–36.9; O2SAT 94–100; BMI 28.2
[2023-10-16] MEDS: Lactated Ringers 1,000 ML 50 ML IV (19:00)
[2023-10-16 19:34] LABS: Absolute Lymphocyte Count 2.16 X10^3/uL (0.83-4.51); Absolute Neutrophil Count 8.5 X10^3/uL (2.0-7.7); Basophil# 0.03 X10^3/uL; Basophil% 0.3 % (0-1); Eosinophil# 0.07 X10^3/uL; Eosinophils% 0.6 % (0-5); Hematocrit 36.3 % (37-47); Hemoglobin 12.1 g/dL (12.0-15.0); Lymphocyte # 2.16 X10^3/ul (0.83-4.51); Lymphocyte % 18.5 % (19-41); Mean Corp Hgb Conc 33.3 g/dL (32-36); Mean Corpuscular Hgb 28.7 pg (27.0-32.0); Mean Platelet Vol. 10.8 fl (6.2-12.0); Monocyte# 0.91 X10^3/uL; Monocyte% 7.8 % (0-10); NRBC Flagged by Analyzer 0 % (0-5); Neutrophil # 8.45 X10^3/uL (2.7-7.7); Neutrophil % 72.5 % (47-70); Platelet Count 250 K/mm3 (150-450); RBC Distribution Width CV 13.1 % (11.6-14.6); RBC Distribution Width SD 40.7 fl (35.1-43.9); Red Blood Count 4.22 M/mm3 (4.2-5.4); White Blood Count 11.7 K/mm3 (4.4-11.0)
--- NOTE | 2023-10-16 19:44 | NURSING ---
SM requesting pt remain on continuous monitoring due to head being blottable. when SROM occurs, this RN will reevaluate with provider.
[2023-10-16 20:19] LABS: Syphilis Antibodies Non-reactive
[2023-10-16] MEDS: Oxytocin 15 Units/NS 250ml 15 UNITS/250 ML IV.SOLN 83 UNITS IV (22:32)
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
--- NOTE | 2023-10-16 22:42 | DCINST_ITS ---
Discharge Instructions Diet Discharge Diet: No restrictions Activity Discharge Activity: Return to Normal Activity, May Not Drive (while taking narcotic pain medications.) and May Shower May resume sexual activity in: 4-6 weeks Dressing / Incision Call your doctor if your incision/area has: Continuous Slow Oozing, Sudden Increased Bleeding, Increased Pain/ Swelling, Increased Redness and Foul Smelling Discharge Follow Up Care Please Follow Up With: Cherelle White MD When: Call [phone] to make an appointment with your doctor in 6 weeks. If you had elevated blood pressure or 4th degree laceration, you will need to be seen in 2 weeks. Test Results: Test results from this visit will be discussed in further detail at your follow- up appointment, if applicable. Discharge Plan Admission Admit Date/Time: 10/16/23 18:42 Attending Provider: Cherelle White Primary Care Provider: Jelly Peng Discharge Orders/Prescriptions Prescriptions: No Action PNV-DHA 27 mg iron-1 mg -300 mg capsule 1 cap PO DAILY ferrous sulfate [Feosol] 325 mg (65 mg iron) tablet 325 mg PO DAILY Referrals / Follow Up: Jelly Peng DO [Primary Care Provider] - Disposition Disposition (needs filled in before D/C Order can be placed): Home, Self Care
--- NOTE | 2023-10-16 22:42 | EX.PCM.OBRPT ---
Maternal Data Information SAM Calculator Estimated Delivery Date Method Current Current Estimate 10/27/23 LMP (Certain) 38w 3d Vaginal Delivery Operative Information Date of Procedure: 10/16/23 Pre-Operative Diagnosis: see a/p diagnoses Post-Operative Diagnosis: same Surgery / Procedure Performed: Spontaneous Vaginal Delivery Type of Anesthesia: None Special Medications: none Estimated Blood Loss: 100 Fluids Replaced: crystalloid Findings Description of Procedure: Patient began pushing and delivered the head in the KEZIA presentation. The head was delivered atraumatically and a loose nuchal cord ?1 was identified and the infant delivered through without complication. The anterior and posterior shoulders delivered without complication followed by the rest of the and the was placed on the maternal abdomen. Delayed cord clamping was employed for approximately 60 seconds. Cord was clamped and cut and gentle traction was applied to the cord and the placenta delivered spontaneously immediately following it was noted to be intact with three-vessel cord. The perineum and vagina were inspected and noted to have no laceration. EBL was 100. Patient and infant tolerated delivery well. Amniotic Fluid Description: Clear Placental Delivery Description: Spontaneous Placenta Disposition: [facility] Cord Vessel Description: 3 Vessels Cord Entanglement: None Delayed Cord Clamping: Yes Post Vaginal Delivery Medications Given After Delivery: IV Pitocin Episiotomy Description: None Complication Complications: None Procedures Urinary/Genital [id number]: [id number] Vaginal Delivery [facility]
[2023-10-17] VITALS (21 sets, daily range): BP systolic 106–130; BP diastolic 55–67; PULSE 54–81; RESP 16; TEMP 36.4–37.3; O2SAT 97–100
--- NOTE | 2023-10-17 08:14 | PCM.PN.OB ---
Subjective Subjective Patient doing well without complaints. Tolerating PO. Ambulating and voiding without difficulty. feeding well. Denies chest pain, shortness of breath, calf pain/swelling, fevers, chills, lightheadedness. Objective Data Objective Data Vital Signs: Vital Signs Temp Pulse Resp BP Pulse Ox O2 Del Method 97.9 F 65 16 114/58 L 99 Room Air 10/17/23 04:55 10/17/23 04:55 10/17/23 04:55 10/17/23 04:55 10/17/23 00:35 10/17/23 04:55 Oxygen Delivery Method Room Air Weight: 175 lb Body Mass Index (BMI) 28.2 Intake & Output: Intake and Output for Last 24 Hours 10/15/23 10/16/23 10/17/23 23:59 23:59 23:59 Intake Total 173.33 / 173.33 250 / 250 Output Total 2900 / 2900 Balance 173.33 / 173.33 -2650 / -2650 Lab / Micro Data 10/16/23 18:35 Labs: Laboratory Results - last 24 hr 10/16/23 18:35: WBC 11.7 H, RBC 4.22, Hgb 12.1, Hct 36.3 L, MCV 86.0, MCH 28.7, MCHC 33.3, RDW Std Deviation 40.7, RDW Coeff of Derick 13.1, Plt Count 250, MPV 10.8, Immature Gran % (Auto) 0.300, Neut % (Auto) 72.5 H, Lymph % (Auto) 18.5 L, [place] % (Auto) 7.8, Eos % (Auto) 0.6, Baso % (Auto) 0.3, Absolute Neuts (auto) 8.5 H, Absolute Lymphs (auto) 2.16, Nucleated RBC % 0, Syphilis Total Ab Non-reactive, Blood Type A POSITIVE, Antibody Screen NEGATIVE Micro: Microbiology 10/16/23 18:35 Urine, Clean Catch Chlamydia/Neisseria (PCR) - Final ROS Constitutional Constitutional: Reports systems reviewed and no addt'l complaints, except as documented Cardiovascular Cardiovascular: Reports systems reviewed and no addt'l complaints, except as documented Respiratory/Chest Respiratory/Chest: Reports systems reviewed and no addt'l complaints, except as documented Gastrointestinal Gastrointestinal: Reports systems reviewed and no addt'l complaints, except as documented Physical Exam Const alert, oriented x3 and no apparent distress HEENT Head and Scalp: atraumatic Resp normal respiratory effort GI soft to palpation and non-tender Bimanual Exam - Vag & Uterus: uterus non-tender Uterus Palpation: uterus fundus firm (below Umbilicus) Assessment & Plan (1) Vaginal delivery: COMMENT: 38 IAL SM boy Jeronimo PLAN: Plan s/p PPD # 1 1. routine post delivery care 2. breast feeding- support given 3. rh positive 4. rubella immune
[2023-10-18] VITALS (8 sets, daily range): BP systolic 110–115; BP diastolic 62–63; PULSE 53–73; RESP 16; TEMP 36.3–36.8; O2SAT 99–100
--- NOTE | 2023-10-18 11:09 | PCM.PN.OB ---
Subjective Subjective Patient doing well without complaints. Tolerating PO. Ambulating and voiding without difficulty. feeding well. Denies chest pain, shortness of breath, calf pain/swelling, fevers, chills, lightheadedness. Objective Data Objective Data Vital Signs: Vital Signs Temp Pulse Resp BP Pulse Ox O2 Del Method 97.4 F L 56 L 16 112/62 100 Room Air 10/18/23 08:00 10/18/23 08:00 10/18/23 08:00 10/18/23 08:00 10/18/23 08:00 10/18/23 08:00 Oxygen Delivery Method Room Air Weight: 175 lb Body Mass Index (BMI) 28.2 Intake & Output: Intake and Output for Last 24 Hours 10/16/23 10/17/23 10/18/23 23:59 23:59 23:59 Intake Total 173.33 / 173.33 250 / 250 Output Total 2900 / 2900 Balance 173.33 / 173.33 -2650 / -2650 Lab / Micro Data 10/16/23 18:35 Labs: Laboratory Results - last 24 hr 10/16/23 18:35: WBC 11.7 H, RBC 4.22, Hgb 12.1, Hct 36.3 L, MCV 86.0, MCH 28.7, MCHC 33.3, RDW Std Deviation 40.7, RDW Coeff of Derick 13.1, Plt Count 250, MPV 10.8, Immature Gran % (Auto) 0.300, Neut % (Auto) 72.5 H, Lymph % (Auto) 18.5 L, [place] % (Auto) 7.8, Eos % (Auto) 0.6, Baso % (Auto) 0.3, Absolute Neuts (auto) 8.5 H, Absolute Lymphs (auto) 2.16, Nucleated RBC % 0, Syphilis Total Ab Non-reactive, Blood Type A POSITIVE, Antibody Screen NEGATIVE Micro: Microbiology 10/16/23 18:35 Urine, Clean Catch Chlamydia/Neisseria (PCR) - Final ROS Constitutional Constitutional: Reports systems reviewed and no addt'l complaints, except as documented Cardiovascular Cardiovascular: Reports systems reviewed and no addt'l complaints, except as documented Respiratory/Chest Respiratory/Chest: Reports systems reviewed and no addt'l complaints, except as documented Gastrointestinal Gastrointestinal: Reports systems reviewed and no addt'l complaints, except as documented Physical Exam Const alert, oriented x3 and no apparent distress HEENT Head and Scalp: atraumatic Resp normal respiratory effort GI soft to palpation and non-tender Bimanual Exam - Vag & Uterus: uterus non-tender Uterus Palpation: uterus fundus firm (below Umbilicus) Assessment & Plan (1) Vaginal delivery: COMMENT: 38 IAL SM boy Jeronimo PLAN: Plan s/p PPD # 2 1. routine post delivery care 2. breast feeding- support given 3. rh positive 4. rubella immune
--- NOTE | 2023-10-26 15:23 | NURSING ---
Here 10-22-23 for bilirubin check for . Patient states she is doing well, bleeding is minimal. patient denies any headaches, visual disturbances, or baby blues. States is going well and denies any questions or concerns at this time.
== END 2023-10-18 16:35 | disposition home or self-care (01) | DRG 807 ==
LOC: WPOUT 18:50 → WP 18:50
PROVIDERS: Admitting Provider Obstetrics & Gynecology; PCP Family Medicine; Visit Provider Obstetrics & Gynecology
DX: O99.02 Anemia complicating childbirth (principal); Z37.0 Single live birth; O69.81X0 Labor and delivery complicated by cord around neck, without compression, not applicable or unspecified; Z3A.37 37 weeks gestation of pregnancy
CPT/HCPCS: 59025; 59050; 85025; 86780; 86850; 86900; 86901; 87491; 87591; 99221; J7120; G0378

== ENCOUNTER → 2024-11-21 | Outpatient (CLI) | payer OTHER, SELFPAY | END | disposition home or self-care (01) | LOC: LABSPEC 16:01 | PROVIDERS: PCP Family Medicine; Visit Provider Obstetrics & Gynecology | DX: Z12.4 Encounter for screening for malignant neoplasm of cervix (principal) | CPT/HCPCS: 88175; G0145 ==